=== PATIENT | male | born 1960 | race Caucasian/White ===

== ENCOUNTER 2016-10-20 21:32 | Emergency (ER) | payer OTHER ==
[2016-10-20] MEDS ORDERED: methylPREDNISolone Acetate 40 mg/ml Vial ONE (21:57)
[2016-10-20] MEDS ORDERED: Dexamethasone 4 mg/ml Vial ONE (21:57)
== END 2016-10-20 22:27 | disposition home or self-care (01) ==
LOC: MADERS 21:32
DX: L23.9 Allergic contact dermatitis, unspecified cause (principal); J45.909 Unspecified asthma, uncomplicated; E78.5 Hyperlipidemia, unspecified; F32.9 Major depressive disorder, single episode, unspecified; Z87.891 Personal history of nicotine dependence
CPT/HCPCS: 96372; J1030; J1100

== ENCOUNTER 2016-11-10 20:53 | Emergency (ER) | payer OTHER | END 2016-11-10 21:30 | disposition home or self-care (01) | LOC: MADERS 20:53 | DX: B86 Scabies (principal); J45.909 Unspecified asthma, uncomplicated; E78.5 Hyperlipidemia, unspecified; F32.9 Major depressive disorder, single episode, unspecified; Z87.891 Personal history of nicotine dependence | CPT/HCPCS: 99282 ==

== ENCOUNTER 2017-06-29 09:04 | Outpatient (CLI) | payer OTHER ==
--- NOTE | 2017-06-29 10:30 | RAD ---
LUMBAR SPINE RADIOGRAPHS THREE VIEWS: Date: 06-29-17 Provided Clinical History: Low back pain. FINDINGS: Five non-rib bearing lumbar type vertebral bodies are present. Lumbar alignment appears normal. Verte bral body heights appear preserved. Pedicles appear intact. Mild lumbar disc and facet degenerative c hanges are seen. IMPRESSION: Lumbar degenerative change. POS: [facility]
== END 2017-06-29 09:05 | disposition home or self-care (01) ==
LOC: MADRAD 09:04
PROVIDERS: ATTEND Physician Assistant
DX: M54.40 Lumbago with sciatica, unspecified side (principal); M47.816 Spondylosis without myelopathy or radiculopathy, lumbar region
CPT/HCPCS: 72100

== ENCOUNTER 2018-01-25 12:29 | Emergency (ER) | payer OTHER ==
[2018-01-25] MEDS ORDERED: Ketorolac Tromethamine 60 MG/2 ML VIAL ONE (12:54)
== END 2018-01-25 13:20 | disposition home or self-care (01) ==
LOC: MADERS 12:29
DX: S39.82XA Other specified injuries of lower back, initial encounter (principal); J45.909 Unspecified asthma, uncomplicated; E78.5 Hyperlipidemia, unspecified; F32.9 Major depressive disorder, single episode, unspecified; F17.210 Nicotine dependence, cigarettes, uncomplicated; Z79.899 Other long term (current) drug therapy; X58.XXXA Exposure to other specified factors, initial encounter
CPT/HCPCS: 96372; J1885

== ENCOUNTER 2019-02-14 08:09 | Emergency (ER) | payer OTHER ==
[2019-02-14] MEDS ORDERED: Aspirin Chewable 81 MG TAB ONE (08:44)
--- NOTE | 2019-02-14 09:01 | RAD ---
XR Chest 1 View Portable HISTORY: Chest pain COMPARISON: 09/09/2015 FINDINGS: The heart size is normal. The lungs are well expanded without focal areas of consolidation, pneumothorax or pleural effusions. IMPRESSION: No radiographic evidence of acute cardiopulmonary process.
[2019-02-14 09:11] LABS: ALT (SGPT) 14 U/L (8-55); AST (SGOT) 18 U/L (5-34); Albumin 3.9 g/dL (3.5-5.0); Alkaline Phosphatase 76 U/L (40-150); Anion Gap 14 mmol/L (10-20); BUN (Urea Nitrogen) 16 mg/dL (8.4-25.7); Bilirubin, Total 0.3 mg/dL (0.2-1.2); CK (CPK) 83 U/L (30-200); Calc. Creatinine Clearance 0 mL/min (70-130); Calcium 8.9 mg/dL (7.8-10.44); Carbon Dioxide 24 mmol/L (22-29); Chloride 103 mmol/L (98-107); Estimated GFR-MDRD 77; Globulin 2.7 g/dL (2.4-3.5); Glucose 92 mg/dL (70-105); Lipase 12 U/L (8-78); Potassium 4.2 mmol/L (3.5-5.1); Protein, Total 6.6 g/dL (6.0-8.3); Sodium 137 mmol/L (136-145)
[2019-02-14 09:18] LABS: Band 4 % (5-11); Eosinophils 4 % (0-10); Hemoglobin 13.6 g/dL (14.0-18.0); Lymphocytes 16 % (21-51); MDiff Complete? YES; Mean Corpuscular HGB CONC 32.4 g/dL (32.0-36.0); Mean Corpuscular Hemoglobin 29.1 pg (27.0-31.0); Mean Platelet Volume 5.9 fL (7.4-10.4); Monocytes 11 % (0-10); Neutrophil 64 % (42-75); Platelet Count 197 thou/uL (130-400); Platelet Morphology Comment Appears Adequate; RBC Distribution Width 12.2 % (11.5-14.5); Red Blood Cell (RBC) Count 4.65 mill/uL (4.70-6.10); White Blood Cell (WBC) Count 5.5 thou/uL (4.8-10.8)
== END 2019-02-14 09:30 | disposition home or self-care (01) ==
LOC: MADERS 08:09
DX: J20.9 Acute bronchitis, unspecified (principal); J45.909 Unspecified asthma, uncomplicated; E78.5 Hyperlipidemia, unspecified; E78.00 Pure hypercholesterolemia, unspecified; F32.9 Major depressive disorder, single episode, unspecified; F17.210 Nicotine dependence, cigarettes, uncomplicated; Z79.899 Other long term (current) drug therapy
CPT/HCPCS: 71045; 80053; 82550; 83690; 83880; 84484; 85025; 93005

== ENCOUNTER 2019-03-11 09:37 | Emergency (ER) | payer OTHER ==
[2019-03-11] MEDS ORDERED: Ketorolac Tromethamine 60 MG/2 ML VIAL ONE (09:54)
== END 2019-03-11 10:20 | disposition home or self-care (01) ==
LOC: MADERS 09:37
DX: S39.82XA Other specified injuries of lower back, initial encounter (principal); J44.9 Chronic obstructive pulmonary disease, unspecified; E78.5 Hyperlipidemia, unspecified; E78.00 Pure hypercholesterolemia, unspecified; F32.9 Major depressive disorder, single episode, unspecified; F17.210 Nicotine dependence, cigarettes, uncomplicated; Z71.6 Tobacco abuse counseling; X58.XXXA Exposure to other specified factors, initial encounter
CPT/HCPCS: 96372; 99406; J1885

== ENCOUNTER 2019-07-12 08:53 | Outpatient (CLI) | payer OTHER ==
--- NOTE | 2019-07-12 09:30 | RAD ---
EXAM: 3 views of the right shoulder HISTORY: Shoulder pain COMPARISON: None FINDINGS: There is no evidence of acute fracture or dislocation. No degenerative changes are present. No soft tissue swelling is seen. The visualized thorax is unremarkable. IMPRESSION: No evidence of acute osseous abnormality.
--- NOTE | 2019-07-12 09:54 | RAD ---
CERVICAL SPINE 5 VIEWS: HISTORY: Pain. Right shoulder pain. FINDINGS: AP, left oblique, right ovary, open-mouth, swimmer, and lateral view of the cervical spine are submi tted for interpretation. There are no flexion or extension views. On the AP and open-mouth projection, multilevel facet arthropathy. Predental space is normal. No prevertebral soft tissue swelling. Straightening of cervical lordosis in the lateral neutral position. Moderate loss of disc space heigh t and osteophyte formation at C4-C5 and C5-C6. Mild to moderate degenerative change at C6-C7. Cervicothoracic junction demonstrates mild to moderate change with osteophyte formation. Left oblique radiograph demonstrates mild multilevel neural foraminal narrowing at C3-C4, C4-C5, C5-C 6 and C6-C7. The left oblique projection is somewhat limited due to position. There does appear to be severe left foraminal narrowing at C4-C5. Moderate foraminal narrowing at C3-C4 and C4-5-C6. IMPRESSION: Degenerative changes of the cervical spine as above. Transcribed Date/Time: 07/12/2019 10:02 AM
== END 2019-07-12 08:54 | disposition home or self-care (01) ==
LOC: MADRAD 08:53
PROVIDERS: ATTEND Physician Assistant
DX: M25.511 Pain in right shoulder (principal); M47.812 Spondylosis without myelopathy or radiculopathy, cervical region
CPT/HCPCS: 72052

== ENCOUNTER 2024-10-29 09:15 | Outpatient (CLI) | payer OTHER | END 2024-10-29 09:16 | disposition home or self-care (01) | LOC: MADLAB 09:15 | PROVIDERS: ATTEND Physician Assistant | DX: M89.8X9 Other specified disorders of bone, unspecified site (principal) | CPT/HCPCS: 71046 ==